=== PATIENT | female | born 2000 | race African-American/Black ===

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

== ENCOUNTER 2020-02-10 22:20 | Emergency (ER) | payer MEDICAID, SELFPAY | END 2020-02-10 22:42 | disposition home or self-care (01) | LOC: ERS 22:20 | DX: H66.91 Otitis media, unspecified, right ear (principal); J45.909 Unspecified asthma, uncomplicated; Z79.51 Long term (current) use of inhaled steroids | CPT/HCPCS: 99282 ==

== ENCOUNTER 2022-04-11 20:18 | Emergency (ER) | payer SELFPAY | END 2022-04-11 22:55 | disposition home or self-care (01) | LOC: ERS 20:18 | DX: J02.9 Acute pharyngitis, unspecified (principal); M79.10 Myalgia, unspecified site; I10 Essential (primary) hypertension; E78.5 Hyperlipidemia, unspecified; E78.00 Pure hypercholesterolemia, unspecified; J45.909 Unspecified asthma, uncomplicated | CPT/HCPCS: 87081; 87430; 87804; 99283 ==